=== PATIENT | female | born 2005 | race Caucasian/White ===

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

== ENCOUNTER 2024-04-05 13:50 | Day surgery (SDC) | payer OTHER, SELFPAY ==
[2024-03-29 08:44] VITALS: BMI 29.2
--- NOTE | 2024-04-05 | PATH_ITS ---
[facility] Accession Number: [id number] No. of containers..01 Tissue . 01 Material submitted: . gluteal cleft - GLUTEAL CLEFT . 01 Diagnosis: SKIN, GLUTEAL CLEFT, BIOPSY: Consistent with pilonidal cyst. [facility] 04/07/2024 1146 Local . 01 Electronically signed: . Katlyn Zaldivar MD, Pathologist NPI- [id number] . 01 Gross description: . Received in formalin with two identifiers and gluteal cleft, is an unoriented ellipse of skin, 12.4 x 3.6 cm and up to 2.3 cm thick. The cutaneous surface has an eccentrically located brown friable lesion, 0.7 x 0.5 cm. The margin is inked blue. Sectioning reveals the aforementioned skin lesion to be a cystic structure with tract measuring up to 1.3 cm in greatest dimension and filled with brown grumous material. A patient care representative section is submitted in A1. ([id number]) /MRV 04/06/2024 1723 Local . 01 Pathologist provided ICD-10: L05.01 . 01 CPT . 398662 Specimen Comment: A courtesy copy of this report has been sent to [phone] Performed at: [address] [facility] [address], [place], [place] [id number] MD Carl Lugo MD Phone: [phone]
[2024-04-05 14:15] VITALS: BMI 29.2
--- NOTE | 2024-04-05 14:36 | SUR.OPER ---
Prone on padded OR bed, head in foam head support, gel chest rolls, gel pad under knees, pillow under lower legs, toes free of pressure, arms secured on padded arm boards at <90 degrees abduction. Safety belt at thigh.
--- NOTE | 2024-04-05 14:39 | PM.PREOP ---
Pre-operative Note COVID-19 COVID-19 status: Not tested Interval Note History & Physical reviewed/Exam performed by Physician: Yes Changes to H&P: No ASA Class (for procedural sedation): II
[2024-04-05] MEDS: ACETAMINOPHEN 325 MG TABLET 975 MG PO (14:46)
[2024-04-05] MEDS: LACTATED RINGERS 1,000 ML 42 ML IV ×2 (14:46→16:03)
[2024-04-05] MEDS: CEFAZOLIN 2 GM/100 ML PREMIX 100 ML IV (15:17)
[2024-04-05] MEDS: BUPIVACAINE 0.5% (PF) 30 ML, EPINEPHrine 0.15 MG INJ (15:52)
--- NOTE | 2024-04-05 16:12 | P.OP_ITS ---
Operative Date/Time/Diagnoses Date of procedure: 04/05/24 Time of procedure: 16:12 Pre-op diagnosis: Pilonidal cyst and abscess Post-op diagnosis: same Procedure & Clinicians Procedure: Kal procedure (cleft lift) Same procedure as scheduled: Yes Surgeon: Osei Jackson Customer Relations Representative: Keith Ibarra Anesthesia Type: General Operative Notes Procedure in detail: The patient was marked in preop and lines were drawn to delineate the gluteal cleft. The patient was then brought to the operating room and general endotracheal anesthesia was induced. The patient was placed prone on the or table. The buttocks were taped to the rails of the table. The gluteal cleft and anus were prepped with Betadine and draped in the usual fashion. A time-out was performed. We made the [place] incision with the specimen including the gluteal cleft itself and skin to the right side of the gluteal cleft. We created a flap on the left side. There were areas of granulation tissue in the mid gluteal cleft but no adeline purulence. We injected additional Marcaine in the deepest aspect of the wound as well as in the subcutaneous tissue. A 15 [place] round Antonio drain was placed into the wound and brought out through a right gluteal stab incision. The drain was secured to the skin with a nylon stitch. The tape was then released and we proceeded to close the incision in layers using multiple interrupted 3-0 Vicryl sutures in the deep layers. The wo und came together without tension and 3-0 Vicryl dermal sutures were used to bring the skin flaps together. Finally a running 4 Monocryl subcuticular stitch was used to close the skin and Dermabond was applied. The drain was connected to bulb suction. EBL: 30 mL Specimen: Gluteal cleft Post-operative Condition: stable Disposition: PACU
[2024-04-05 16:30] VITALS: BP 133/95; PULSE 120; RESP 16; TEMP 36.4; O2SAT 98
[2024-04-05 16:36] VITALS: BP 120/90; PULSE 113; RESP 15; TEMP 36.4; O2SAT 99
[2024-04-05 16:43] VITALS: BP 131/91; PULSE 95; RESP 18; TEMP 36.4; O2SAT 99
[2024-04-05] MEDS: ONDANSETRON 4 MG/2 ML INJ IV (16:52)
== END 2024-04-05 17:20 | disposition home or self-care (01) ==
PROVIDERS: PCP Nurse Practitioner Family; Referring Provider Surgery; Visit Provider Surgery
PROC: (CPT 11772; principal; 2024-04-05 15:15)
DX: L05.91 Pilonidal cyst without abscess (principal)
CPT/HCPCS: 11772; 81025; J0171; J0690; J1100; J1885; J2250; J2405; J2704; J3010